=== PATIENT | female | born 1980 | race Two or more races ===

== ENCOUNTER 2019-10-30 08:00 | Day surgery (SDC) | payer OTHER ==
[~2019-10-30 08:00] MED LIST: CRESTOR10 MG PO
== END 2019-10-30 17:53 | disposition home or self-care (01) ==
LOC: CIR.AMB 08:00
PROVIDERS: ATTEND Obstetrics & Gynecology
DX: N84.3 Polyp of vulva (principal); Z30.2 Encounter for sterilization